=== PATIENT | female | born 1995 | race Caucasian/White ===

== ENCOUNTER → 2022-03-22 15:10 | Observation (INO) | END | disposition home or self-care (01) | LOC: 1NENULAB | PROVIDERS: ADMIT Registered Nurse; ATTEND Registered Nurse ==

== ENCOUNTER 2022-05-11 19:33 | Inpatient (IN) ==
[2022-05-11] MEDS ORDERED: EPHEDrine sulfate 50 MG/10 ML VIAL IVP PRN (19:55)
[2022-05-11] MEDS ORDERED: Naloxone 0.4 MG/ML INJ IVP PRN (20:21)
[2022-05-11] MEDS ORDERED: Metoclopramide 10 MG/2 ML VIAL IVP PRN (20:21)
[2022-05-11] MEDS ORDERED: *HR* FentaNYL (PF) 100 MCG/2 ML VIAL IVP PRN (20:21)
[2022-05-11] MEDS ORDERED: Ondansetron 4 MG/2 ML VIAL IVP PRN (20:21)
[2022-05-11] MEDS ORDERED: Famotidine 20 MG/2 ML VIAL IVP PRN (20:21)
[2022-05-11] MEDS ORDERED: Lidocaine 1% 20 ML MDV ID PRN (20:21)
[2022-05-11] MEDS ORDERED: Azithromycin 500 MG in 0.9 % Sodium Chloride 250 ML IVPB PRN (20:21)
[2022-05-11] MEDS ORDERED: *HR* Nalbuphine 10 MG/ML AMPUL IV PRN (20:21)
[2022-05-11 20:47] LABS: Basophils # 0.1 K/mcL (0.0-0.2); Basophils % 0.8 %; Eosinophils # 0.5 K/mcL (0.0-0.6); Eosinophils % 5.1 %; Hematocrit 34.3 % (35.3-44.9); Hemoglobin 11.2 g/dL (11.5-15.4); Immature Granulocytes % 0.8 % (0-4); Lymphocytes # 2.2 K/mcL (0.6-4.6); Lymphocytes % 23.5 %; Mean Corpuscular HGB Conc 32.7 g/dL (31.6-35.5); Mean Corpuscular Hemoglobin 26.7 pg (28.0-33.3); Mean Corpuscular Volume 81.7 fL (83.0-100.0); Mean Platelet Volume 10.9 fL (9.4-12.4); Monocytes # 0.5 K/mcL (0.0-1.3); Monocytes % 5.7 %; Neutrophils # 5.9 K/mcL (1.6-8.9); Platelet Count 226 K/mcL (140-400); Red Cell Distribution Width 13.5 % (11.5-14.5); Segmented Neutrophils % 64.1 %; White Blood Count 9.1 K/mcL (4.3-11.1)
[2022-05-11 20:59] LABS: Creatinine,Urine 31 mg/dL; Protein/Creatinine Ratio,Urine 0.19 mg/mg (0.00-0.20)
[2022-05-11 21:14] LABS: Alanine Aminotransferase 10 Units/L (7-52); Aspartate Amino Transferase 13 Units/L (13-39); BUN/Creatinine Ratio 15 (6-26); Blood Urea Nitrogen 11 mg/dL (6-20); Lactate Dehydrogenase 158 Units/L (140-271)
[2022-05-11] MEDS: miSOPROStoL 25 MCG TABLET PO PRN (21:40)
[2022-05-12] MEDS: miSOPROStoL 25 MCG TABLET PO PRN (02:00)
[2022-05-12] MEDS ORDERED: Ringers Solution, Lactated 1,000 ML ONE ×3 (03:10→20:36)
[2022-05-12] MEDS ORDERED: Ropivacaine/PF 0.2% 20 ML VIAL ONE (04:40)
[2022-05-12] MEDS ORDERED: EPHEDrine sulfate 50 MG/10 ML VIAL IVP ONE (05:00)
[2022-05-12] MEDS ORDERED: Oxytocin 30 UNIT/503 ML BAG IVC SCH (06:15)
[2022-05-12 09:30] LABS: Amphetamine Screen,Urine Negative ng/mL (Cutoff=1000); Barbiturate Screen,Urine Negative ng/mL (Cutoff=200); Benzodiazepines Screen,Urine Negative ng/mL (Cutoff=200); Cannabinoid Screen,Urine Negative ng/mL (Cutoff = 50); Cocaine Screen,Urine Negative ng/mL (Cutoff= 300); Opiate Screen,Urine Negative ng/mL (Cutoff=300); Phencyclidine Screen,Urine Negative ng/mL (Cutoff=25)
[2022-05-12] MEDS: Epidural Premix (fent/bupiv) 110 ML EP SCH ×2 (10:24→17:27)
[2022-05-13] MEDS ORDERED: Ringers Solution, Lactated 1,000 ML ONE ×2 (00:54→04:16)
[2022-05-13] MEDS ORDERED: *HR* Ropivacaine/PF 0.5% 20 ML VIAL ONE (02:27)
[2022-05-13] MEDS ORDERED: *HR* FentaNYL (PF) 100 MCG/2 ML VIAL ONE (02:27)
[2022-05-13] MEDS ORDERED: Lidocaine/EPI 1:200k 2% PF 20 ML VIAL ONE (03:34)
[2022-05-13] MEDS ORDERED: Acetaminophen IV 1,000 MG/100 ML BAG IVPB ONE (03:44)
[2022-05-13] MEDS ORDERED: Ondansetron 4 MG/2 ML VIAL ONE (03:44)
[2022-05-13] MEDS ORDERED: Ketorolac 30 MG/ML VIAL ONE (03:44)
[2022-05-13] MEDS ORDERED: *HR* Morphine Sulfate/PF 10 MG/10 ML AMPUL ONE (03:45)
[2022-05-13] MEDS ORDERED: Clindamycin 900 MG/50 ML 900 MG/50 ML IV.SOLN IVPB ONE (03:50)
[2022-05-13] MEDS ORDERED: Promethazine 6.25 MG in Water for inj. (sterile) 20 ML IVPB PRN (03:56)
[2022-05-13] MEDS ORDERED: *HR* HYDROmorphone PF 0.5 MG/0.5 ML SYRINGE IVP PRN (03:56)
[2022-05-13] MEDS ORDERED: Ondansetron 4 MG/2 ML VIAL IVP PRN ×2 (03:56→09:36)
[2022-05-13] MEDS ORDERED: CeFAZolin 2,000 MG/120 ML BAG IVPB SCH (04:00)
[2022-05-13] MEDS ORDERED: Metoclopramide 10 MG/2 ML VIAL IVP PRN (09:36)
[2022-05-13] MEDS ORDERED: Simethicone 80 MG TAB.CHEW PO PRN (09:36)
[2022-05-13] MEDS ORDERED: Rho Immune Globulin 1,500 UNIT SYRINGE IM ONE (09:36)
[2022-05-13] MEDS ORDERED: Ringers Solution, Lactated 1,000 ML IVC SCH (09:36)
[2022-05-13] MEDS ORDERED: Oxytocin 30 UNIT/503 ML BAG IVC SCH (09:36)
[2022-05-13] MEDS ORDERED: Naloxone 0.4 MG/ML INJ IVP PRN (09:36)
[2022-05-13] MEDS ORDERED: Dextrose Gel 15 GM/37.5 ML TUBE PO ONE (10:57)
[2022-05-13] MEDS: Acetaminophen 325 MG TABLET PO SCH ×2 (16:17→22:27)
[2022-05-13] MEDS: Ibuprofen 600 MG TABLET PO SCH ×2 (16:17→22:28)
[2022-05-13] MEDS: metroNIDAZOLE 500 MG TABLET PO SCH ×2 (16:18→20:08)
[2022-05-13] MEDS: *HR* OxyCODONE Immed Rel 5 MG TABLET PO PRN (20:08)
[2022-05-14 04:14] LABS: Basophils % 0.4 %; Eosinophils # 0.2 K/mcL (0.0-0.6); Hematocrit 26.7 % (35.3-44.9); Immature Granulocytes % 0.7 % (0-4); Lymphocytes # 1.5 K/mcL (0.6-4.6); Lymphocytes % 14.1 %; Mean Corpuscular HGB Conc 32.2 g/dL (31.6-35.5); Mean Corpuscular Hemoglobin 26.6 pg (28.0-33.3); Mean Corpuscular Volume 82.7 fL (83.0-100.0); Mean Platelet Volume 10.4 fL (9.4-12.4); Monocytes # 0.7 K/mcL (0.0-1.3); Monocytes % 6.1 %; Neutrophils # 8.2 K/mcL (1.6-8.9); Platelet Count 161 K/mcL (140-400); Red Blood Count 3.23 M/mcL (3.82-4.97); Red Cell Distribution Width 13.6 % (11.5-14.5); Segmented Neutrophils % 76.7 %; White Blood Count 10.7 K/mcL (4.3-11.1)
[2022-05-14 04:15] LABS: Hemoglobin 8.6 g/dL (11.5-15.4)
[2022-05-14] MEDS: Ibuprofen 600 MG TABLET PO SCH ×4 (05:04→20:09)
[2022-05-14] MEDS: Acetaminophen 325 MG TABLET PO SCH ×4 (05:04→20:09)
[2022-05-14] MEDS: *HR* OxyCODONE Immed Rel 5 MG TABLET PO PRN ×3 (09:24→22:06)
[2022-05-14] MEDS: metroNIDAZOLE 500 MG TABLET PO SCH ×3 (09:40→20:10)
[2022-05-14] MEDS: Prenatal Vit/FA 1 EACH TABLET PO SCH (11:28)
[2022-05-14] MEDS ORDERED: Mag Hydrox/Al Hydrox/Simeth 30 ML UDC PO PRN (23:18)
[2022-05-15] MEDS: *HR* OxyCODONE Immed Rel 5 MG TABLET PO PRN ×3 (02:57→11:16)
[2022-05-15] MEDS: Acetaminophen 325 MG TABLET PO SCH ×2 (02:58→09:21)
[2022-05-15] MEDS: Ibuprofen 600 MG TABLET PO SCH ×2 (02:58→09:22)
[2022-05-15 06:48] VITALS: BP 133/92; PULSE 93; TEMP 98.1; O2SAT 96
[2022-05-15] MEDS: Prenatal Vit/FA 1 EACH TABLET PO SCH (08:14)
[2022-05-15] MEDS ORDERED: Acetaminophen 325 MG TABLET PO PRN (09:23)
== END 2022-05-15 14:12 | disposition home or self-care (01) | DRG 787 ==
LOC: 1NENULAB 19:33 → 1NENUOBS 05-13 07:42
PROVIDERS: ADMIT Obstetrics & Gynecology; ATTEND Obstetrics & Gynecology